=== PATIENT | female | born 1990 ===

== ENCOUNTER → 2021-12-13 | Outpatient (REF) ==
[2021-12-14 05:06] LABS: HERPES ZOSTER, VARICELLA IgG <135 index (Immune >165); RUBEOLA IgG ANTIBODY >300.0 AU/mL (Immune >16.4)
== END ==
LOC: M LAB 09:59
PROVIDERS: ATTEND Nurse Practitioner Family
DX: Z02.1 Encounter for pre-employment examination (principal)